=== PATIENT | female | born 1990 | race Caucasian/White ===

== ENCOUNTER 2023-12-03 12:49 | Outpatient (CLI) | payer OTHER, SELFPAY ==
--- NOTE | 2023-12-03 12:59 | CT_ITS ---
FINAL REPORT TECHNIQUE: Axial CT images of the abdomen and pelvis were obtained without intravenous contrast. Coronal and sagittal reformatted images were also obtained.This study was performed with techniques to keep radiation doses as low as reasonably achievable (ALARA). Individualized dose reduction techniques using automated exposure control or adjustment of mA and/or kV according to the patient's size were employed. CLINICAL HISTORY: RECTAL BLEEDING COMPARISON: None FINDINGS: Abdomen: The lung bases are clear. The liver parenchyma is homogeneous. The spleen, pancreas, and adrenals are unremarkable. There is no evidence of nephrolithiasis or hydronephrosis. There is no mass or adenopathy. Pelvis: The appendix is not identified. There is mild descending colon wall thickening, mild colitis not excluded. The urinary bladder is unremarkable. The cervix is somewhat enlarged, of uncertain significance. There is no free fluid, mass, or adenopathy. IMPRESSION: Small mild descending colon wall thickening, mild colitis not excluded. Reviewed, Interpreted and Dictated by Colton Dave III, MD Transcribed by Laurie Hagen Authenticated and [facility]
== END 2023-12-03 23:59 ==
PROVIDERS: PCP Nurse Practitioner; Visit Provider Nurse Practitioner
DX: K62.5 Hemorrhage of anus and rectum (principal)
CPT/HCPCS: 74176